=== PATIENT | female | born 1995 ===

== ENCOUNTER 2023-07-15 17:55 | Emergency (ER) | payer SELFPAY ==
[2023-07-15 18:34] VITALS: BP 114/65; PULSE 68; RESP 16; TEMP 35.6; O2SAT 100
--- NOTE | 2023-07-15 18:44 | W.ED.GENAD ---
Discharge Plan Disposition Patient Disposition: Home Discharge Details Clinical Impression: Does not refill medications appropriately Primary Care Provider: None,None ED Provider: Estuardo Hines Discharge Instructions Instructions: Medicine Refill (ED) Additional Instructions: You were seen in the emergency department for your request to refill for different medications for type II bipolar disorder, you were unsure of the dose of these medicines and we cannot refill medicines without a documented valid prescription at least with the name and dose of medicine and prove that it is prescribed to you. Please contact someone in [place] like the [facility] or a friend that can go to the clinic and speak with the staff while on the phone with you to have verification faxed to us or emailed to us. There is a [facility] that should be able to help you refill these medicines if you can find a documentable dose. If you have left the bottles in [place] you could try to reach out to that person to take pictures of the bottles and send them to you so that we can prescribe these medicines. Referrals: Care Management [Provider Group] (patient is visiting from [place] for 2 weeks or 2 months, requesting unverified Rx's for 4 different meds for bipolar 2 disorder- need medication verification from [facility] in [place] to refill.) Discharge Data Discharge Date/Time-TO BE ENTERED AT DEPARTURE: 07/15/23 19:31 Medical Decision Making This dictation utilizes [id number] dictation software and may contain unedited grammatical errors. 28 y/o F presents to ED today with a chief complaint of request for medication refill- has 4 medications she is asking for refills for up to two months on, her primary care is in [place] and she has no records or dosing information on Buspar, Lamotrigine, Cogentin, and another medication. Patient doesn't know how she could contact [place] to get this information. Patients' medical history: Bipolar Type II per her account. Pertinent exam findings / vital signs include nontoxic vitals, no acute distress, calm demeanor. Differential / pathologies of concern include request for medication refill. Diagnostic studies of: -none. Interventions of: -none, informed the patient I could not refill chronic medications without verification of dosing. ED Course/Assessment/Plan: Counseled the patient to use Urgent Care, but to make every effort to get records of her medications and right dose, right med, right patient and we could then get her at least a short supply. Findings not consistent with emergent condition. Disposition of Does Not Fill Medications Appropriately Patient verbalized understanding of the plan and return to ED criteria and engaged in shared decision making. HPI General Date/Time Provider Initiated Documentation: 07/15/23 18:04. HPI Narrative: 28 year-old female presents to ED today by POV/ambulating with a chief complaint of request for medication refill- patient is visiting from [place] for two weeks or two months, and ran out of 4 medications for Type II Bipolar Disorder, with onset 4 days ago. She states it is Buspar, Cogentin, Lamiotrigine, and something else- she has no documentation of prescriptions from her doctor in [place], and has no idea of her doses- she left the bottles in [place] before arrival in [place]. Quality described as no physical complaints, no radiation to hallucinations, SI/HI. Severity is described as mild at this time. Palliating factors include nothing specific. Provoking factors include nothing specific. Events leading up to the incident/Associated Symptoms: Patient is unsure about how to get records from [place]. Patient not anticoagulated. Related Data Allergies Allergy/AdvReac Type Severity Reaction Status Date / Time No Known Allergies Allergy Unverified 07/15/23 18:38 General Stated Complaint: RX Refill YESENIA: 5 Review of Systems All systems reviewed & are unremarkable except as noted in HPI and below PFSH All Active Problems (Updated 07/15/23 @ 18:48 by AGUILAR Liu) Does not refill medications appropriately (Acute) Social History Smoking/Tobacco Use Status: Never Smoking risk assessment performed?: Yes Alcohol Intake: never Substance use type: does not use Housing: house Do you feel safe at home: Yes Do you feel safe in your relationship?: Yes Additional Social history: traveling here from [place] KELLY Junior 07/15/23 Exam Narrative Exam Narrative: GENERAL APPEARANCE: Well-nourished, non-toxic, awake and alert, atraumatic, no acute distress. SKIN: Warm, normal for ethnicity, dry, intact, without rashes/lesions/ulcerations. HEAD: Normocephalic, atraumatic, normal hair distribution for gender/age. EYES: Pupils PERRLA, EOMs intact without nystagmus, normal conjunctiva, no exudates on lids/lashes. ENT: Nares patent, no circumoral cyanosis, no facial swelling NECK: Supple, trachea midline, painless cervical ROM. LUNGS/CHEST: Non-labored respirations, normal A/P diameter, symmetrical expansion, no chest wall deformity HEART (CV/PV): No peripheral edema, no JVD. ABDOMEN: Soft, non-distended, no guarding. MSK: Normal ROM, no swelling/deformity to bilateral UEs or LEs, moving all extremities without weakness, no cyanosis, spine midline without tenderness, normal curvature. NEURO: Mental Status AAOx4 - alert to person, place, time, events No facial droop, no forehead involvement. Motor: No focal weakness - strength 5/5 in bilateral UEs and LEs, proximal and distal, symmetric. Sensory: sensation intact to light touch globally. Gait normal: patient ambulated without ataxia into ED room. PSYCH: euthymic, cooperative, pleasant, appropriate speech Course Vital Signs Vital signs: Vital Signs Temperature 35.6 C L 07/15/23 18:34 Pulse 68 07/15/23 18:34 Respiratory Rate 16 07/15/23 18:34 Blood Pressure 114/65 07/15/23 18:34 Pulse Oximetry 100 07/15/23 18:34 Temperature 35.6 C L 07/15/23 18:34 Temperature Source Tympanic 07/15/23 18:34 Pulse 68 07/15/23 18:34 Respiratory Rate 16 07/15/23 18:34 Blood Pressure 114/65 07/15/23 18:34 Pulse Oximetry 100 07/15/23 18:34 Oxygen Delivery Method Room Air 07/15/23 18:34 Oxygen Flow Rate 0 07/15/23 18:34
== END 2023-07-15 19:31 | disposition home or self-care (01) ==
PROVIDERS: Emergency Provider Physician Assistant
DX: Z76.0 Encounter for issue of repeat prescription (principal); F31.81 Bipolar II disorder
CPT/HCPCS: 99281; 99282